=== PATIENT | female | born 2000 ===

== ENCOUNTER 2019-04-02 19:10 | Emergency (ER) | payer BC ==
[~2019-04-02] VITALS: Ht 160 cm; Wt 81.6 kg
== END 2019-04-02 20:21 | disposition home or self-care (01) ==
LOC: ER 19:10
DX: S91.021A Laceration with foreign body, right ankle, initial encounter (principal); W25.XXXA Contact with sharp glass, initial encounter; Y93.89 Activity, other specified; Y92.89 Other specified places as the place of occurrence of the external cause; Y99.8 Other external cause status